=== PATIENT | female | born 1990 | race Caucasian/White ===

== ENCOUNTER → 2024-06-27 14:29 | Outpatient (REF) | payer OTHER, SELFPAY | LOC: RAD 14:29 | PROVIDERS: ATTENDING PHYSICIAN Nurse Practitioner Family | DX: G89.29 Other chronic pain (principal); M25.572 Pain in left ankle and joints of left foot | CPT/HCPCS: 73610 ==

== ENCOUNTER → 2024-09-20 10:42 | Outpatient (REF) | payer OTHER, SELFPAY | LOC: PAVMRI 10:42 | PROVIDERS: ATTENDING PHYSICIAN Orthopaedic Surgery | DX: M67.471 Ganglion, right ankle and foot (principal); M76.72 Peroneal tendinitis, left leg | CPT/HCPCS: 73721; 73723; A9575 ==

== ENCOUNTER → 2024-12-19 14:19 | Outpatient (REF) | payer OTHER, SELFPAY | LOC: RAD 14:19 | PROVIDERS: ATTENDING PHYSICIAN Family Medicine | DX: R79.89 Other specified abnormal findings of blood chemistry (principal); M54.50 Low back pain, unspecified; R53.83 Other fatigue | CPT/HCPCS: 74178; Q9967 ==

== ENCOUNTER → 2025-02-01 17:37 | Outpatient (REF) | payer OTHER, SELFPAY | LOC: MRI 3T 17:37 | PROVIDERS: ATTENDING PHYSICIAN Family Medicine | DX: R79.89 Other specified abnormal findings of blood chemistry (principal); M54.50 Low back pain, unspecified; R53.83 Other fatigue | CPT/HCPCS: 70553; A9575 ==

== ENCOUNTER 2025-06-06 07:12 | Emergency (ER) | payer OTHER, SELFPAY ==
[2025-06-06 07:26] VITALS: BP 136/70
--- NOTE | 2025-06-06 07:57 | ED.GENMED ---
History of Present Illness
General
Chief Complaint: Chest Problem
Time Seen by Provider: 06/06/25 07:57
History of Present Illness
History of Present Illness:
FOCUSED PAST MEDICAL HISTORY
- Surgically repaired atrial septal defect
REVIEW OF OLD RECORDS
- Patient wore a Holter monitor November 2024 that showed no A-fib, no significant bradycardia, no pauses, rare ectopy and predominantly normal sinus rhythm
- Echo from 2022 showed normal EF, well-seated Amplatzer device with no residual shunting across the atrial septum
Note:
CHIEF COMPLAINT(S)
Feeling of lightheadedness, left-sided sensations described as 'whooshing,' and difficulty breathing.
HISTORY OF PRESENT ILLNESS
The patient is a 34-year-old female who reported waking up around 5:00 AM feeling 'weird' and 'lightheaded.' She describes a sensation of 'whooshing' on the left side of her body and reports having difficulty focusing, stating she feels out of it.
The patient mentioned an episode where she felt as though she might be experiencing a heart attack due to the tightness in her chest and heart racing. She also reported difficulty in getting enough oxygen, which was suggested to be associated with
anxiety. The patient attempted to alleviate her symptoms by breathing techniques and pacing around the house. She was informed that her vital signs were normal.
The patient disclosed experiencing past episodes of dysregulated breathing and acknowledged a family history of heart problems. She referenced having an echocardiogram in 2019 and a Holter monitor over the past summer due to similar symptoms.
EXTERNAL RECORDS REVIEWED
The patient had an echocardiogram in 2019 and a Holter monitor over the past summer. An atrial septal defect was mentioned, for which the patient underwent a procedure in 2011 to correct.
SOCIAL DETERMINANTS AFFECTING HEALTH
The patient lives with her son next door on the same property, indicating a supportive living situation.
REVIEW OF SYSTEMS
- Cognitive: The patient reports feeling 'out of it' and has difficulty concentrating.
- Neurological: Sensations described as 'whooshing' on the left side of the body.
- Cardiovascular: Episodes of heart racing and chest tightness described fear of a heart attack.
- Respiratory: Reports difficulty breathing and feels as though she is not getting enough oxygen.
PHYSICAL EXAM
- General: Appears anxious and tearful
- HEENT: Moist oral mucosa
- Cardiovascular: No murmurs, normal heart rate, regular rhythm, No chest wall tenderness
- Pulmonary: No respiratory distress, breath sounds are clear and equal
- Abdomen: Soft with no peritoneal signs, no tenderness
- Neurologic: Excellent strength all extremities, no coordination deficits, no sensory deficits, normal coordination
- Psychiatric: Appears anxious, appropriate mental status, normal insight and judgement
- Extremities: Nontender, no edema, moves all extremities equally
- Skin: No rash, no lesions
PLAN
Blood work was ordered. Consider providing medication to alleviate anxiety and calm symptoms. Vital signs were confirmed to be stable and normal to reassure the patient.
DIFFERENTIAL DIAGNOSIS
The Differential Diagnosis includes, in no particular order and is not limited to:
1. Anxiety or Panic Attack
2. Transient Ischemic Attack (TIA)
3. Cardiac Arrhythmia
4. Hyperventilation Syndrome
5. Vertigo
6. Migraine Aura
7. Atrial Septal Defect-related symptoms
8. Hyperthyroidism
9. Anemia
10. Hypoglycemia
EKG
- Sinus 82, sinus arrhythmia noted, no acute ST abnormality, no old to compare
LABS
- Bicarb 20, troponin normal
SUMMARY OF ENCOUNTER
The patient, a 34-year-old female, presented to the emergency department with sensations described as 'whooshing' on the left side of her body, lightheadedness, and difficulty breathing, leading her to fear a heart attack. She reported chest
tightness, heart racing, and a tingling sensation all over her body. Blood work and cardiac assessments were completed, revealing normal results with no indication of a heart attack. A neurological exam, including strength and coordination tests,
showed no signs of a stroke. Her oxygen levels, heart rate, and blood pressure were also normal, and her symptoms were predominantly attributed to anxiety. Medication management for anxiety, including a prescription for alprazolam (Xanax) and
sertraline (Zoloft), was discussed.
DISPOSITION
Discharge
ASSESSMENT
The patients symptoms of lightheadedness, chest tightness, and tingling sensations are strongly suspected to be anxiety-related, given normal blood work results, including cardiac markers, no indications of stroke from neurological evaluation, and
stable vital signs.
PLAN
The patient will be prescribed alprazolam for acute anxiety episodes but advised to limit its use due to potential for addiction. A prescription for sertraline was also discussed, as it could help with long-term anxiety management. The patient is
advised to follow up with her primary care physician, and cognitive behavioral therapy was recommended as a potential additional treatment to explore.
INDEPENDENT REVIEW OF LABS AND INTERPRETATION OF TESTS
My independent review of cardiac blood work indicates no signs of myocardial infarction. All cardiac markers were within normal limits.
MEDICATION RECONCILIATION
1. Alprazolam (Xanax) prescribed for anxiety attacks as a rescue medication.
2. Sertraline (Zoloft) prescribed for ongoing anxiety management to be commenced as directed by primary care.
MEDICAL DECISION MAKING
- Number and Complexity of Problems Addressed: Chronic conditions affecting care include anxiety. Differential diagnosis considerations were anxiety or panic attack, cardiac arrhythmia, hyperventilation syndrome, transient ischemic attack (TIA),
atrial septal defect-related symptoms, hyperthyroidism, anemia, and hypoglycemia.
- Data:
Category 1
- Reviewed non-emergency department cardiac blood work with normal results ruling out myocardial infarction.
- External records reviewed include patients prior echocardiogram and Holter monitor.
Category 2
- No independent historian was required.
Category 3
- Discussion of management with patient regarding initiation of sertraline and use of alprazolam for acute episodes.
- Risk:
Consideration of Admission/Observation: Escalation of care including admission/observation was considered given the complexity and risk of the patients presenting complaint, exam findings, and/or their underlying comorbidities. However, ultimately I
feel the patient is safe for outpatient management with close follow up. Reasoning: Work-up reassuring, does not reveal any acute life/organ threatening processes, patients symptoms well controlled upon reevaluation, reexamination is reassuring,
vitals are stable, patient agreeable with discharge, reliable for follow-up.
Care significantly affected by Social Determinants of Health: Patient resides with her son, providing a supportive home environment which can assist in monitoring and management.
DIAGNOSIS
1. Anxiety Disorder - ICD-10: F41.9
2. Generalized Anxiety Disorder (FARAZ) - ICD-10: F41.1
UPDATE
- Multiple complaints including paresthesias and is tearful and appears rather anxious
- EKG normal
- She has sensation that she 'cannot get enough air' but her sats are 100% on room air and she does not appear to be in any respiratory distress and lungs are clear, strongly suspect anxiety
- Ativan given; some improvement on reassessment; but still is tearful at times but overall improved
- Strongly suspect anxiety related presentation
- She has a PMD to follow-up with but we ultimately agreed to start Zoloft and gave prescription for Xanax
- Stroke scale 0 on physical examination GCS 15
- I have asked crisis to give the patient resources
Phy Exam
Physical Exam
Physical Exam:
See HPI
Course
Orders/Labs/Results
Orders:
Orders
06/06/25 07:15
ECG [Electrocardiogram (*1)] Urgent
Reason for Study: Palpitations
06/06/25 07:16
EKG- Treatment ONCE
06/06/25 08:05
Lorazepam [Ativan] 1 mg IV NOW STA
06/06/25 08:16
Complete Blood Count/No Diff Urgent
Comprehensive Metabolic Panel Urgent
Magnesium Urgent
Troponin I Urgent
Abnormal Lab Results
06/06/25
08:16
RBC 3.78 L 10^6/uL
(4.20-5.40)
Hct 36.0 L %
(37.0-47.0)
MCH 32.5 H pg
(27.0-31.0)
Carbon Dioxide 20 L mmol/L
(22-30)
Albumin 5.1 H g/dl
(3.5-5.0)
06/06/25 08:16
06/06/25 08:16
Vital Signs
Initial and Last Documented VS:
Initial Vital Signs
Temp Pulse Resp BP Pulse Ox
36.8 C 86 16 136/70 100
06/06/25 07:26 06/06/25 07:26 06/06/25 07:26 06/06/25 07:26 06/06/25 07:26
Last Documented Vital Signs
Temp Pulse Resp BP Pulse Ox
36.8 C 86 14 119/81 96
06/06/25 07:26 06/06/25 09:12 06/06/25 09:12 06/06/25 09:12 06/06/25 09:12
*Pulse Oximetry
SaO2: 100
Oxygen Mode of Delivery: Room air
Patient hypoxic: no
*Critical Care Note
Total Time (30-74mins, 75-104mins- exclusive of procedures): Not Applicable
ED Attending Note
-
Portions of this chart may have been created with voice recognition software.� Occasional wrong word or��sound alike� substitutions may have occurred due to the inherent limitations of voice recognition software.
Discharge Plan
Departure
Patient Disposition: Home (Routine Discharge)
Date of Disposition: 06/06/25
Time of Disposition: 09:22
Patient with high blood pressure during this ER visit?: Yes
Discharge Problem:
Anxiety
Instructions: Anxiety in adults - ED (DC), BLOOD PRESSURE
Prescriptions:
New
sertraline [Zoloft] 25 mg tablet
25 mg PO DAILY Qty: 30 0RF
alprazolam [Xanax] 0.5 mg tablet
0.5 - 1 mg PO DAILY PRN (Reason: anxiety) Qty: 14 0RF
No Action
METHADONE
Referrals:
Jess Pantoja MD [Family Provider, Family Practice]
Activity Restrictions/Additional Instructions:
I suspect that your symptoms are related to anxiety attack/anxiety. Your blood work is normal with the exception of your bicarbonate level being slightly low which is commonly seen with anxiety/hyperventilation. Cardiac blood work shows no sign of
heart attack. Physical examination shows no sign of stroke. Your EKG is excellent. Your vital signs are excellent. I sent a prescription for Zoloft to your pharmacy which you can start taking on a daily basis. However the benefits are not
usually seen for about 3 to 4 weeks. You should follow with your primary care doctor. I also sent a prescription for Xanax to your pharmacy only be taken for severe episodes of anxiety. It has high addiction potential. I also recommend you
follow-up with a psychologist/behavioral health. I have asked our crisis department to give you some resources. Return if worse or other concerns.
Interventions
Interventions:
*General Assessment Last Done: 06/06/25 07:26
*Neglect/Abuse Screening Last Done: 06/06/25 07:26
*ED COVID-19 Vaccine History Last Done: 06/06/25 08:11
*ED Influenza Vaccine History Last Done: 06/06/25 08:11
[facility] Risk Assessment Tool Last Done: 06/06/25 07:49
*Risk Screen - Suicide (C-SSRS) Last Done: 06/06/25 07:26
*Nursing Disposition Last Done: 06/06/25 09:26
ED- Cardiac Assessment Last Done: 06/06/25 07:49
ED- Pulmonary Assessment Last Done: 06/06/25 07:49
Discharge Date and Time
Print Language: BELGIAN
[2025-06-06 08:11] VITALS: BP 118/67
[2025-06-06] MEDS: ATIVAN 1 MG IV (08:19)
[2025-06-06 08:22] LABS: Hematocrit 36.0 % (37.0-47.0); Hemoglobin 12.3 g/dL (12.0-16.0); Mean Corp Hgb Conc. 34.2 g/dL (33.0-37.0); Mean Corpuscular Volume 95.2 fL (81.0-99.0); Platelet Count 275 10^3/uL (130-400); Red Cell Dist. Width 12.1 % (11.5-14.5)
[2025-06-06 08:41] LABS: ALT (SGPT) 14 U/L (0-35); AST (SGOT) 21 U/L (14-36); Albumin 5.1 g/dl (3.5-5.0); Alkaline Phosphatase 48 U/L (38-126); Blood Urea Nitrogen 9 mg/dl (7-17); Calcium 9.6 mg/dl (8.4-10.2); Carbon Dioxide 20 mmol/L (22-30); Chloride 103 mmol/L (98-107); Glucose 87 mg/dl (70-99); Magnesium 1.9 mg/dl (1.6-2.3); Potassium 3.8 mmol/L (3.5-5.1); Sodium 135 mmol/L (135-145); Total Protein 7.9 g/dl (6.3-8.2); eGFR > 60.00
[2025-06-06 08:52] LABS: Troponin I < 0.012 ng/ml
[2025-06-06 09:12] VITALS: BP 119/81
== END 2025-06-06 09:30 | disposition home or self-care (01) ==
LOC: EMR 07:12
PROVIDERS: EMERGENCY PHYSICIAN Emergency Medicine; FAMILY PHYSICIAN Family Medicine
DX: F41.1 Generalized anxiety disorder (principal)
CPT/HCPCS: 99283; 96374; 80053; 83735; 84484; 85027; 93005